=== PATIENT | male | born 1965 | race Caucasian/White ===

== ENCOUNTER 2023-05-15 20:49 | Emergency (ER) | payer OTHER ==
[~2023-05-15] VITALS: Ht 177.8 cm; Wt 86.4 kg
[2023-05-15 23:09] LABS: BASO % 0.2 % (0.0-1.0); EOS % 0.1 % (0.0-3.0); HEMATOCRIT 47.3 % (42.0-52.0); HEMOGLOBIN 16.2 g/dl (13.5-17.5); LYMPH # 2.1 10^3/uL (1.5-5.0); LYMPH % 9.9 % (24.0-44.0); MEAN CORPUSCULAR HEMOGLOBIN 29.1 pg (27.0-33.0); MEAN CORPUSCULAR HGB CONC 34.2 g/dl (32.0-36.5); MEAN CORPUSCULAR VOLUME 85.1 fl (80.0-96.0); MONO # 0.9 10^3/uL (0.0-0.8); MONO % 4.3 % (2.0-8.0); NEUTROPHILS # 17.5 10^3/uL (1.5-8.5); NEUTROPHILS % 85.1 % (36.0-66.0); PLATELET COUNT, AUTOMATED 260 10^3/uL (150-450); RED BLOOD COUNT 5.56 10^6/uL (4.30-6.10); WHITE BLOOD COUNT 20.6 10^3/uL (4.0-10.0)
[2023-05-15 23:33] LABS: LIPASE 29 U/L (12-53)
[2023-05-15 23:35] LABS: ALKALINE PHOSPHATASE 117 U/L (46-116); ALT/SGPT 18 U/L (7.0-40); AST/SGOT 14 U/L (<34); BILIRUBIN,DIRECT < 0.1 MG/DL (<0.4); BILIRUBIN,TOTAL 0.3 MG/DL (0.3-1.2); BLOOD UREA NITROGEN 14 MG/DL (9-23); CALCIUM LEVEL 9.5 MG/DL (8.5-10.1); CARBON DIOXIDE LEVEL 21 MMOL/L (20-31); CHLORIDE LEVEL 104 MMOL/L (98-107); CREATININE FOR GFR 0.89 MG/DL (0.70-1.30); GLOMERULAR FILTRATION RATE > 60.0 (>56); GLUCOSE, FASTING 133 MG/DL (60-100); POTASSIUM SERUM 3.6 MMOL/L (3.5-5.1); SODIUM LEVEL 138 MMOL/L (136-145); TOTAL PROTEIN 7.5 G/DL (5.7-8.2)
[2023-05-15] MEDS ORDERED: NS 1,000 ML IV ONE (23:50)
[2023-05-15] MEDS ORDERED: MORPHINE 4 MG/ML 1ML VIAL IV ONE (23:50)
[2023-05-15] MEDS ORDERED: ONDANSETRON 4MG 2ML VIAL IV ONE (23:50)
[2023-05-16] MEDS: GASTROGRAFIN SOLUTION 30ML PO SCH ×2 (01:09→01:14)
[2023-05-16 01:18] VITALS: TEMP 98.1
[2023-05-16] MEDS ORDERED: ISOVUE-370 76% 100ML VIAL As Ordered ONE (02:08)
[2023-05-16 02:25] LABS: RSV AMPLIFICATION NEGATIVE (NEGATIVE)
[2023-05-16 02:49] VITALS: O2SAT 96
[2023-05-16 03:02] VITALS: BP 184/117
== END 2023-05-16 04:59 | disposition home or self-care (01) ==
LOC: M ED 20:49
DX: K59.00 Constipation, unspecified (principal); D35.00 Benign neoplasm of unspecified adrenal gland; F17.200 Nicotine dependence, unspecified, uncomplicated
CPT/HCPCS: 74177; 80048; 80076; 83605; 83690; 84145; 85025; 87040; 87486; 87581; 87631; 87633; 87798; 96361; 96374; 96375; 99283; J2405; Q9963; Q9967

== ENCOUNTER → 2023-07-26 | Outpatient (CLI) | payer OTHER | LOC: M SLEEP HO 10:10 | PROVIDERS: ATTEND Nurse Practitioner Family | DX: G47.9 Sleep disorder, unspecified (principal) ==